=== PATIENT | female | born 1995 | race Two or more races ===

== ENCOUNTER 2021-09-19 18:33 | Outpatient (CLI) | payer OTHER | END 2021-09-19 22:27 | disposition left against medical advice (07) | LOC: OBS/DEL 18:33 | PROVIDERS: ATTEND Specialist | DX: O47.1 False labor at or after 37 completed weeks of gestation (principal); Z3A.39 39 weeks gestation of pregnancy; R10.2 Pelvic and perineal pain ==

== ENCOUNTER 2021-09-22 05:38 | Inpatient (IN) | payer OTHER ==
[~2021-09-22] VITALS: Ht 154.9 cm; Wt 3.2 kg
[2021-09-22] MEDS ORDERED: PRENATAL + DHA1 EAC1 (06:54)
== END 2021-09-25 13:26 | disposition home or self-care (01) | DRG 788 ==
LOC: LDR 05:38 → OB/GYN 19:39
PROVIDERS: ADMIT Specialist; ATTEND Specialist
PROC: 4A1HXCZ Monitoring of Products of Conception, Cardiac Rate, External Approach (ICD-10-PCS; 2021-09-22)
PROC: 10D00Z1 Extraction of Products of Conception, Low, Open Approach (ICD-10-PCS; principal; 2021-09-22 12:00)
DX: O62.1 Secondary uterine inertia (principal); Z3A.39 39 weeks gestation of pregnancy; Z37.0 Single live birth; Z20.822 Contact with and (suspected) exposure to COVID-19